=== PATIENT | male | born 1985 | race Caucasian/White ===

== ENCOUNTER 2018-07-15 13:01 | Emergency (ER) | payer OTHER, MEDICARE ==
--- NOTE | 2018-07-15 13:33 | ER Document Report ---
ED Medical Screen (RME) - General Chief Complaint: Headache Stated Complaint: HEAD PAIN Time Seen by Provider: 07/15/18 13:16 Mode of Arrival: Ambulatory Information source: Patient TRAVEL OUTSIDE OF THE [place] IN LAST 30 DAYS: No - HPI Patient complains to provider of: Headache Notes: 07/15/18 13:31 Patient is here with complaints of headache. The patient is on hCG and testosterone injections. He works out a lot. States a few days ago he was curling when he had a sudden sharp pain go up his neck and in the left side of his head. States that it was the worst headache he is ever had and it caused some blurred vision in the left eye and he felt he was having some trouble with his speech. States that he has continued to have a headache since this occurred. Try to work out again, and states that the pain seemed to get worse. No blood thinners. No head injury. No unilateral numbness, tingling, weakness. Exam Nontoxic, no distress. Lungs clear and equal throughout. Heart sounds normal. Nonfocal neuro exam. Plan CBC, CMP, coags, CT head, CTA head and neck. An initial examination was made on the patient as part of the triage process, and it was determined a more comprehensive evaluation was necessary. Initial labs were ordered and patient was transferred to another provider in the ED who assumed care and finished evaluation and plan. - Related Data Allergies/Adverse Reactions: No Known Allergies Allergy (Verified 07/15/18 13:08) Past Medical History - Social History Chew tobacco use (# tins/day): No Frequency of alcohol use: None Drug Abuse: None - Past Medical History Cardiac Medical History: Reports: Hx Hypertension Renal/ Medical History: Denies: Hx Peritoneal Dialysis Physical Exam - Vital signs Vitals: Temp Pulse Resp BP Pulse Ox 98.1 F 98 20 152/85 H 97 07/15/18 13:10 07/15/18 13:10 07/15/18 13:10 07/15/18 13:10 07/15/18 13:10 Course - Vital Signs Vital signs: Temp Pulse Resp BP Pulse Ox 98.1 F 98 20 152/85 H 97 07/15/18 13:10 07/15/18 13:10 07/15/18 13:10 07/15/18 13:10 07/15/18 13:10
[2018-07-15 14:00] LABS: ABSOLUTE EOSINOPHILS # (AUTO) 0.2 10^3/uL (0.0-0.6); ABSOLUTE LYMPHOCYTES (AUTO) 2.8 10^3/uL (0.5-4.7); ABSOLUTE MONOCYTES (AUTO) 0.4 10^3/uL (0.1-1.4); ABSOLUTE NEUT (AUTO) 4.9 10^3/uL (1.7-8.2); BASOPHILS % (AUTO) 0.5 % (0-2); EOSINOPHILS % (AUTO) 2.2 % (0-6); HEMATOCRIT 52.5 % (37.9-51.0); HEMOGLOBIN 18.3 g/dL (13.5-17.0); LYMPHOCYTES % (AUTO) 33.3 % (13-45); MEAN CORPUSCULAR HEMOGLOBIN 31.4 pg (27.0-33.4); MEAN CORPUSCULAR VOLUME 90 fl (80-97); MONOCYTES % (AUTO) 4.7 % (3-13); PLATELET COUNT 222 10^3/uL (150-450); RED BLOOD COUNT 5.84 10^6/uL (4.35-5.55); RED CELL DISTRIBUTION WIDTH 11.8 % (11.5-14.0); SEGMENTED NEUTROPHILS % (AUTO) 59.3 % (42-78); TOTAL CELLS COUNTED % (AUTO) 100 %; WHITE BLOOD COUNT 8.3 10^3/uL (4.0-10.5)
[2018-07-15 14:08] LABS: INTERNATIONAL RATION (INR) 0.94
[2018-07-15 14:09] LABS: PARTIAL THROMBOPLASTIN TIME 30.8 SEC (23.5-35.8)
[2018-07-15 14:12] LABS: ALANINE AMINOTRANSFERASE 60 U/L (21-72); ALBUMIN 4.5 g/dL (3.5-5.0); ALKALINE PHOSPHATASE 88 U/L (38-126); ANION GAP 10 (5-19); ASPARTATE AMINO TRANSFERASE 44 U/L (17-59); BILIRUBIN,DIRECT 0.3 mg/dL (0.0-0.4); BILIRUBIN,TOTAL 0.7 mg/dL (0.2-1.3); BLOOD UREA NITROGEN 16 mg/dL (7-20); CALCIUM 10.3 mg/dL (8.4-10.2); CARBON DIOXIDE 28 mmol/L (22-30); CHLORIDE 102 mmol/L (98-107); GLUCOSE 108 mg/dL (75-110); POTASSIUM 4.6 mmol/L (3.6-5.0); SODIUM 139.6 mmol/L (137-145); TOTAL PROTEIN 7.5 g/dL (6.3-8.2)
--- NOTE | 2018-07-15 14:35 | RADIOLOGY REPORT (SQ) ---
EXAM DESCRIPTION: CT HEAD WITHOUT COMPLETED DATE/TIME: 07/15/2018 2:21 pm REASON FOR STUDY: HEADACHE, LEFT COMPARISON: None. TECHNIQUE: Axial images acquired through the brain without intravenous contrast. Images reviewed wi th bone, brain and subdural windows. Images stored on PACS. All CT scanners at this facility use dose modulation, iterative reconstruction, and/or weight based d osing when appropriate to reduce radiation dose to as low as reasonably achievable (ALARA). [facility]: Dose Right [facility]: CareDose [facility]: Dose Right [facility]: Teradose 4D [facility]: Smart Mydish RADIATION DOSE: CT Rad equipment meets quality standard of care and radiation dose reduction techniq ues were employed. CTDIvol: 53.2 mGy. DLP: 1070 mGy-cm. mGy. LIMITATIONS: None. FINDINGS: VENTRICLES: Normal size and contour. CEREBRUM: No masses. No hemorrhage. No midline shift. No evidence for acute infarction. Normal gra y/white matter differentiation. No areas of low density in the white matter. CEREBELLUM: No masses. No hemorrhage. No alteration of density. No evidence for acute infarction. EXTRAAXIAL SPACES: No fluid collections. No masses. ORBITS AND GLOBE: No intra- or extraconal masses. Normal contour of globe without masses. CALVARIUM: No fracture. PARANASAL SINUSES: No fluid or mucosal thickening. SOFT TISSUES: No mass or hematoma. OTHER: No other significant finding. IMPRESSION: No acute findings. EVIDENCE OF ACUTE STROKE: NO. COMMENT: Quality ID # 436: Final reports with documentation of one or more dose reduction techniques (e.g., Automated exposure control, adjustment of the mA and/or kV according to patient size, use of iterative reconstruction technique) TECHNICAL DOCUMENTATION: JOB ID: [id number] [place]-72 2010 [employer]- All Rights Reserved Reading location - IP/workstation name: [email or web address]
--- NOTE | 2018-07-15 14:43 | RADIOLOGY REPORT (SQ) ---
EXAM DESCRIPTION: CTA HEAD; CTA NECK COMPLETED DATE/TIME: 07/15/2018 2:22 pm REASON FOR STUDY: HEADACHE, LEFT COMPARISON: None. TECHNIQUE: Post IV contrast scanning, thin section axial imaging from the aortic arch through the br ain to evaluate the arterial structures. Source and MIP images are saved and reviewed on PACS. Advanced 3D imaging as volume-rendering, MIPs, SSD performed? yes All CT scanners at this facility use dose modulation, iterative reconstruction, and/or weight based d osing when appropriate to reduce radiation dose to as low as reasonably achievable (ALARA). [facility]: Dose Right [facility]: CareDose [facility]: Dose Right [facility]: Teradose 4D [facility]: Faveous CONTRAST TYPE AND DOSE: contrast/concentration: Isovue 350.00 mg/ml; Total Contrast Delivered: 70.0 ml; Total Saline Delivered: 75.0 ml RENAL FUNCTION: GFR > 60. LIMITATIONS: None. FINDINGS: [place]: The anterior, middle, posterior cerebral arteries are all patent. No ev idence of aneurysm or focal stenosis. Carotid and vertebral CIRCULATION: The vertebral arteries are patent as is the basilar artery. No ane urysm. BRAIN: No gross enhancing lesions as visualized. The superior cerebral hemispheres are not included in the field of view. BONES: Intact as visualized. SINUSES: No fluid or mucosal thickening. OTHER: No other significant finding. IMPRESSION: NO CTA EVIDENCE OF ANEURYSM OF THE [place]. No Dissection or occlusion. TECHNICAL DOCUMENTATION: JOB ID: [id number] [place]-72 Quality ID # 436: Final reports with documentation of one or more dose reduction techniques (e.g., Au tomated exposure control, adjustment of the mA and/or kV according to patient size, use of iterative reconstruction technique) 2010 [employer]- All Rights Reserved Reading location - IP/workstation name: [email or web address]
--- NOTE | 2018-07-15 14:43 | RADIOLOGY REPORT (SQ) ---
EXAM DESCRIPTION: CTA HEAD; CTA NECK COMPLETED DATE/TIME: 07/15/2018 2:22 pm REASON FOR STUDY: HEADACHE, LEFT COMPARISON: None. TECHNIQUE: Post IV contrast scanning, thin section axial imaging from the aortic arch through the br ain to evaluate the arterial structures. Source and MIP images are saved and reviewed on PACS. Advanced 3D imaging as volume-rendering, MIPs, SSD performed? yes All CT scanners at this facility use dose modulation, iterative reconstruction, and/or weight based d osing when appropriate to reduce radiation dose to as low as reasonably achievable (ALARA). [facility]: Dose Right [facility]: CareDose [facility]: Dose Right [facility]: Teradose 4D [facility]: Sajan CONTRAST TYPE AND DOSE: contrast/concentration: Isovue 350.00 mg/ml; Total Contrast Delivered: 70.0 ml; Total Saline Delivered: 75.0 ml RENAL FUNCTION: GFR > 60. LIMITATIONS: None. FINDINGS: [place]: The anterior, middle, posterior cerebral arteries are all patent. No ev idence of aneurysm or focal stenosis. Carotid and vertebral CIRCULATION: The vertebral arteries are patent as is the basilar artery. No ane urysm. BRAIN: No gross enhancing lesions as visualized. The superior cerebral hemispheres are not included in the field of view. BONES: Intact as visualized. SINUSES: No fluid or mucosal thickening. OTHER: No other significant finding. IMPRESSION: NO CTA EVIDENCE OF ANEURYSM OF THE [place]. No Dissection or occlusion. TECHNICAL DOCUMENTATION: JOB ID: [id number] [place]-72 Quality ID # 436: Final reports with documentation of one or more dose reduction techniques (e.g., Au tomated exposure control, adjustment of the mA and/or kV according to patient size, use of iterative reconstruction technique) 2010 [employer]- All Rights Reserved Reading location - IP/workstation name: [email or web address]
--- NOTE | 2018-07-15 15:09 | ER Document Report ---
ED General - General Chief Complaint: Headache Stated Complaint: HEAD PAIN Time Seen by Provider: 07/15/18 13:16 Mode of Arrival: Ambulatory Notes: 33-year-old healthy male presents with chief complaint of headache. Patient was working out a few days ago and he had a sudden sharp pain go up his neck to the left side of his head. He says this is the worst headache he is ever had caused some blurred vision, and felt he was having some speech problems. He said the pain in his head persisted and he attempted to work out again this morning and had the same pain pattern occur again prompting him to get seen in the emergency department. Patient takes testosterone supplementation and hCG supplementation. Patient is not anticoagulated on any blood thinners, no trauma or head injury sustained, no unilateral numbness, tingling, weakness. Denies fevers, chills, shortness of breath or chest pain, nausea, vomiting. No other complaints. TRAVEL OUTSIDE OF THE [place] IN LAST 30 DAYS: No - Related Data Allergies/Adverse Reactions: No Known Allergies Allergy (Verified 07/15/18 13:08) Past Medical History - General Information source: Patient - Social History Smoking Status: Never Smoker Chew tobacco use (# tins/day): No Frequency of alcohol use: None Drug Abuse: None Family History: None Patient has suicidal ideation: No Patient has homicidal ideation: No - Past Medical History Cardiac Medical History: Reports: Hx Hypertension Renal/ Medical History: Denies: Hx Peritoneal Dialysis Review of Systems - Review of Systems Constitutional: See HPI EENT: See HPI Cardiovascular: See HPI Respiratory: See HPI Gastrointestinal: See HPI Neurological/Psychological: See HPI Physical Exam - Vital signs Vitals: Temp Pulse Resp BP Pulse Ox 98.1 F 98 20 152/85 H 97 07/15/18 13:10 07/15/18 13:10 07/15/18 13:10 07/15/18 13:10 07/15/18 13:10 - Notes Notes: PHYSICAL EXAMINATION: Reviewed vital signs and charting by RN GENERAL: Alert, interacts well. No acute distress. HEAD: Normocephalic, atraumatic. EYES: Pupils equal and round. Extraocular movements intact. ENT: Oral mucosa moist, tongue midline. NECK: Full range of motion. Supple. Trachea midline. LUNGS: Clear to auscultation bilaterally, no wheezes, rales, or rhonchi. No respiratory distress. HEART: Regular rate and rhythm. No murmur EXTREMITIES: Moves all 4 extremities spontaneously. No edema, No cyanosis. Normal distal neurovascular exam BACK: No CVAT NEUROLOGIC: Oriented and appropriate. Normal speech. Normal neurologic exam, no focal neuro deficits. PSYCH: Normal affect, normal mood. SKIN: Warm, dry, normal turgor. No rashes or lesions noted. Course - Re-evaluation Re-evalutation: 07/15/18 15:13 Overall well-appearing. CT head and CTA head and neck negative for any intracranial pathology, aneurysm, intracranial bleed, perfusion deficits. Patient's pain is reproducible when he performs activities leading me to believe this is a musculoskeletal problem. Normal neurologic exam, no focal neuro deficits. At this time there is no emergent neurologic condition and patient is stable to follow-up with his primary doctor. - Vital Signs Vital signs: Temp Pulse Resp BP Pulse Ox 98.1 F 98 20 152/85 H 97 07/15/18 13:11 07/15/18 13:10 07/15/18 13:10 07/15/18 13:10 07/15/18 13:10 - Laboratory Result Diagrams: 07/15/18 13:40 07/15/18 13:40 Laboratory results interpreted by me: 07/15/18 07/15/18 13:40 13:40 RBC 5.84 H Hgb 18.3 H Hct 52.5 H Creatinine 1.27 H Calcium 10.3 H Discharge - Discharge Clinical Impression: Head pain Qualifiers: Headache type: unspecified Headache chronicity pattern: acute headache Intractability: not intractable Qualified Code(s): R51 - Headache Condition: Good Disposition: HOME, SELF-CARE Additional Instructions: You were seen in the emergency department this afternoon for head pain most likely related to exercise. The CT of your head and the CT angiogram of all of the blood vessels of your neck and head did not show any acute injury, aneurysm, bleed, or any other concerning symptoms. This is all very reassuring because your pain is reproducible. It is important to follow-up with your primary care provider to look into this further if you are still having symptoms. If you develop severe intractable headache, have vision loss, paralysis of one or more of your extremities, you pass out, develop acute speech problems, or have any other concerning symptoms please merely return to the emergency department.
[2018-07-15 15:33] VITALS: BP 137/87
== END 2018-07-15 15:32 | disposition home or self-care (01) ==
LOC: ER 13:01
DX: R51 Headache (principal); M54.2 Cervicalgia; H53.8 Other visual disturbances; I10 Essential (primary) hypertension
CPT/HCPCS: 36415; 70450; 70496; 70498; 80053; 85025; 85610; 85730; 99284